=== PATIENT | female | born 1995 | race Caucasian/White ===

== ENCOUNTER 2016-06-05 23:23 | Emergency (ER) | payer OTHER ==
[~2016-06-05] VITALS: Ht 167.6 cm; Wt 106.6 kg
--- NOTE | 2016-06-06 00:32 | ED GI/GU/ABDOMINAL COMPLAINT ---
History of Present Illness General Chief Complaint: Nausea, Vomiting, Diarrhea Stated Complaint: N/V/D ABD PAIN X'S I WK Source: patient Exam Limitations: no limitations Vital Signs & Intake/Output Vital Signs & Intake/Output Vital Signs Date Time Temp Pulse Resp B/P Pulse O2 O2 Flow FiO2 Ox Delivery Rate 06/06 0140 98.0 83 18 125/60 97 Room Air 06/05 2349 97.9 90 19 135/84 96 Room Air ED Intake and Output 06/06 0000 06/05 1200 Intake Total Output Total Balance Patient 235 lb Weight Allergies Coded Allergies: MDX - Erythromycin (ERYTHROMYCIN) (Intermediate, HIVES 10/31/12) MDX - Penicillin (PENICILLIN) (Intermediate, HIVES 10/31/12) Reconcile Medications Ondansetron (Zofran Odt) 4 MG TAB.RAPDIS 1 TAB PO Q6 PRN NAUSEA Triage Note: PT TO ED C/O UPPER ABD PAIN, L>R, CONSTANT FOR A WEEK, GETTING WORSE. WORSE WITH INSPIRATION. WORSE AFTER EATING. +N/V/D. DIARRHEA FOR 3 WEEKS. nAUSEA FOR 3 WEEKS. VOMITTING STARTED TONIGHT. 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 yes ? N Is pt currently ? No Onset: Gradual Duration: week(s): (2), worse persistent since (TODAY) Timing: recent history Quality/Severity: moderate Location: right upper quadrant Radiation: no radiation Prior Abdominal Problems: similar symptoms Associated Symptoms: abdominal pain, diarrhea HPI: 20-year-old female with history of endometriosis and narcolepsy who presents to the ER with chief complaint of diarrhea 2 weeks and left upper quadrant abdominal pain for the past one week. No fever or chills. Denies any antibiotic use or hospitalizations. Positive nausea vomiting and diarrhea diarrhea. She states she last vomited in the parking lot after eating [employer]. Denies any sick contacts or recent travel out of the country. She has not been taking anything [id number] for pain relief. She tried some Zofran which she vomited up. No previous abdominal surgeries. Denies any chance of . Past History Travel History Traveled to [place] past 21 day No Medical History Any Pertinent Medical History? see below for history Neurological: [employer]AR[employer]/Reproductive: endometriosis Surgical History Surgical History: non-contributory Psychosocial History What is your primary language Kosovan Tobacco Use: Never used ETOH Use: denies use Illicit Drug Use: denies illicit drug use Family History Comment: ENDOMETRIOSIS Hx Contributory? Yes Review of Systems Review of Systems Constitutional: Denies: chills, fever. EENTM: Reports: no symptoms. Respiratory: Denies: cough, short of breath, sputum production. Cardiovascular: Denies: chest pain, palpitations. GI: Reports: abdominal pain, diarrhea, nausea, vomiting. Genitourinary: Denies: discharge, dysuria, frequency. Musculoskeletal: Reports: no symptoms. Skin: Reports: no symptoms. Neurological/Psychological: Reports: no symptoms. Hematologic/Endocrine: Denies: bruising, bleeding, polyuria, polydipsia. Immunologic/Allergic: Denies: splenectomy. All Other Systems: Reviewed and Negative Physical Exam Physical Exam General Appearance: well developed/nourished, alert, awake, mild distress, obese Head: atraumatic, normal appearance Eyes: Bilateral: normal appearance, PERRL, EOMI. Ears, Nose, Throat, Mouth: hearing grossly normal, moist mucous membrane Neck: normal inspection, supple, full range of motion Respiratory: normal breath sounds, chest non-tender, no respiratory distress Cardiovascular: regular rate/rhythm Peripheral Pulses: 2+ radial (R), 2+ radial (L) Gastrointestinal: normal bowel sounds, soft, non-tender Back: normal inspection, normal range of motion Extremities: normal range of motion Neurologic/Psych: no motor/sensory deficits, awake, alert, oriented x 3 Skin: intact, normal color, warm/dry Core Measures ACS in differential dx? No Severe Sepsis Present: No Septic Shock Present: No Progress Differential Diagnosis: COLITIS, INFECTIOUS DIARRHEA, GASTROENTERITIS, BILIARY COLIC, INFLAMMATORY BOWEL DISEASE Plan of Care: Orders Procedure Date/time Status LIPASE 06/06 45 Complete COMPREHENSIVE METABOLIC PANEL 06/06 45 Complete CBC WITHOUT DIFFERENTIAL 06/06 45 Complete CULTURE,STOOL 06/06 42 Active OVA AND PARASITE ANTIGENS 06/06 42 Active C.DIFFICILE 06/06 42 Active URINE 06/05 235 Complete URINALYSIS 06/05 235 Complete Laboratory Tests 06/06/16 0335: Urine Color YEL, Urine Clarity CLEAR, Urine pH 7.0, Ur Specific [place] 1.020, Urine Protein NEG, Urine Ketones NEG, Urine Nitrite NEG, Urine Bilirubin NEG, Urine Urobilinogen 0.2, Ur Leukocyte Esterase NEG, Ur Microscopic EXAM NOT REQUIRED, Urine Hemoglobin NEG, Urine Glucose NEG, Urine Test NEGATIVE 06/06/16 0109: Anion Gap 8, Estimated GFR > 60, BUN/Creatinine Ratio 13.8, Glucose 91, Calcium 9.3, Total Bilirubin 0.5, AST 14, ALT 29, Alkaline Phosphatase 50, Total Protein 6.9, Albumin 4.0, Globulin 2.9, Albumin/Globulin Ratio 1.4, Lipase 68, CBC w Diff NO MAN DIFF REQ, RBC 4.51, MCV 86.1, MCH 29.9, RDW 13.6, MPV 10.1, Gran % 86.9 H, Lymphocytes % 7.1 L, Monocytes % 5.3, Eosinophils % 0.5, Basophils % 0.2, Absolute Granulocytes 12.2 H, Absolute Lymphocytes 1.0 L, Absolute Monocytes 0.7 H, Absolute Eosinophils 0.1, Absolute Basophils 0, PUBS MCHC 34.7 Microbiology 06/06 42 STOOL: Cryptosporidium Antigen - ORD 06/06 42 STOOL: Giardia Antigen (KM) - ORD 06/06 42 STOOL: Clostridium difficile Toxin A & B - ORD 06/06 42 STOOL: Stool Culture - ORD Abdomen is soft, minimally tender on the right side. Patient feeling much better after IV fluids. Unable to Beard stool sample and wants to go home at this time. I informed her to follow up with primary care doctor to submit an outpatient stool sample if she is still having persistent diarrhea. Patient does not appear toxic or ill. She will follow-up with her primary care doctor in the office. (HAFSA PADILLA,SIMA) Initial ED EKG: none Departure Departure Time of Disposition: 353 Disposition: HOME OR SELF CARE Condition: Stable Clinical Impression Primary Impression: Abdominal pain Secondary Impressions: Nausea & vomiting Referrals: MONICO PADILLA,JIMENA Whaley (PCP/Family) Additional Instructions: Take Zofran as needed for nausea. Clear liquid diet and then advance as tolerated. Please follow-up with her primary care doctor in the office. Return to the ER for any changing or worsening symptoms. Departure Forms: Customer Survey General Discharge Information Prescriptions: Current Visit Scripts Ondansetron (Zofran Odt) 1 TAB PO Q6 PRN NAUSEA #20 TAB
[2016-06-06 01:23] LABS: ABSOLUTE BASOPHIL COUNT 0 /CUMM (0.0-0.2); ABSOLUTE EOSINOPHIL COUNT 0.1 /CUMM (0.0-0.7); ABSOLUTE GRANULOCYTE CT 12.2 /CUMM (1.4-6.5); ABSOLUTE MONOCYTE COUNT 0.7 /CUMM (0.10-0.60); BASOPHIL % 0.2 % (0.0-2.0); EOSINOPHIL % 0.5 % (0-5); GRANULOCYTE % 86.9 % (42.2-75.2); HEMATOCRIT 38.9 % (37-47); MEAN CORPUSCULAR HGB 29.9 PG (27.0-31.0); MEAN CORPUSCULAR HGB CONC 34.7 G/DL (33.0-37.0); MEAN CORPUSCULAR VOLUME 86.1 FL (81.0-99.0); MEAN PLATELET VOLUME 10.1 FL (7.4-10.4); PLATELET COUNT 230 /CUMM (130-400); RBC DISTRIBUTION WIDTH 13.6 % (11.5-14.5); RED BLOOD CELL CT 4.51 /CUMM (4.20-5.40); WHITE BLOOD CELL COUNT 14.1 /CUMM (4.8-10.8)
[2016-06-06] MEDS ORDERED: ZOFRAN ODT4 M1 PO (03:55)
[2016-06-06 04:10] VITALS: BP 130/62
== END 2016-06-06 04:11 ==
LOC: ERH 23:23
PROVIDERS: Emergency Medicine
DX: R11.2 Nausea with vomiting, unspecified (principal); R10.12 Left upper quadrant pain
CPT/HCPCS: 81003; 81025; 87045; 87328; 87329; 96374; 96375; J2765